=== PATIENT | male | born 2000 | race Caucasian/White ===

== ENCOUNTER 2022-10-01 10:41 | Inpatient (IN) | payer OTHER ==
[~2022-10-01] VITALS: Ht 193 cm; Wt 121.6 kg
[2022-10-01 15:33] VITALS: BP 138/71; PULSE 98; RESP 18; TEMP 98.2; O2SAT 98
[2022-10-01 16:00] VITALS: O2SAT 98
[2022-10-01] MEDS ORDERED: BISACODYL 10 MG RECTAL RECTAL SUPPOSITORY PR PRN (16:00)
[2022-10-01] MEDS ORDERED: IBUPROFEN 600 MG TABLET PO SCH (16:00)
[2022-10-01] MEDS ORDERED: ACETAMINOPHEN 500 MG TABLET PO SCH (16:00)
[2022-10-01] MEDS ORDERED: LACTULOSE 20 GM/30 ML SOLUTION UDCUP PO PRN (16:00)
[2022-10-01] MEDS: GABAPENTIN 300 MG CAPSULE PO SCH ×2 (17:42→22:17)
[2022-10-01] MEDS: METHOCARBAMOL 500 MG TABLET PO SCH ×2 (17:43→21:36)
[2022-10-01] MEDS: HEPARIN SODIUM,PORCINE 5,000 UNITS/ML VIAL SQ SCH (17:44)
[2022-10-01 21:34] VITALS: BP 129/63; PULSE 83; RESP 16; TEMP 98.3; O2SAT 100
[2022-10-01] MEDS: OxyCODONE HCL 10 MG IR TABLET PO PRN (21:34)
[2022-10-01] MEDS: ETHYL ALCOHOL 62% ANTISEPTIC NASAL SANITIZER 0.6 ML AMPUL NASAL SCH (21:35)
[2022-10-01] MEDS: MELATONIN 5 MG TABLET PO SCH (21:35)
[2022-10-01] MEDS: SENNOSIDES 8.6 MG TABLET PO SCH (21:35)
[2022-10-01] MEDS: DOCUSATE SODIUM 100 MG CAPSULE PO SCH (21:35)
[2022-10-01 23:42] VITALS: O2SAT 100
[2022-10-02] MEDS: ACETAMINOPHEN 500 MG TABLET PO SCH ×4 (00:26→18:13)
[2022-10-02] MEDS: HEPARIN SODIUM,PORCINE 5,000 UNITS/ML VIAL SQ SCH ×3 (00:26→16:35)
[2022-10-02] MEDS: IBUPROFEN 600 MG TABLET PO SCH ×4 (00:27→18:14)
[2022-10-02 08:05] VITALS: BP 127/66; PULSE 94; RESP 20; TEMP 98; O2SAT 98
[2022-10-02 08:17] LABS: EOSINOPHILS % (AUTO) 1.2 % (1.0-6.0); HEMOGLOBIN 11.3 g/dL (13.5-17.5); LYMPHOCYTES % (AUTO) 19.1 % (22.0-44.0); MEAN CORPUSCULAR HEMOGLOBIN 30.3 pg (26.0-34.0); MEAN CORPUSCULAR HGB CONC 33.2 G/dL (31.0-37.0); MEAN CORPUSCULAR VOLUME 91 fL (80-100); MONOCYTES % (AUTO) 12.8 % (2.0-9.0); NEUTROPHILS % (AUTO) 65.9 % (40.0-70.0); PLATELET COUNT (AUTO) 326 K/uL (150-450); RED BLOOD CELL COUNT(AUTO) 3.72 MIL/uL (4.50-5.90); RED CELL DISTRIBUTION WIDTH 15.9 % (11.5-14.5)
[2022-10-02] MEDS: DOCUSATE SODIUM 100 MG CAPSULE PO SCH ×2 (08:26→21:57)
[2022-10-02] MEDS: MAGNESIUM HYDROXIDE SUSPENSION 30 ML UDCUP PO SCH (08:26)
[2022-10-02] MEDS: METHOCARBAMOL 500 MG TABLET PO SCH ×4 (08:30→21:50)
[2022-10-02 08:38] LABS: ALANINE AMINOTRANSFERASE 34 U/L (12-78); ALKALINE PHOSPHATASE 135 U/L (46-116); ANION GAP 10 mmol/L (8-16); ASPARTATE AMINOTRANSFERASE 28 U/L (15-37); BILIRUBIN,TOTAL 0.8 mg/dL (0.1-1.0); CALCIUM, TOTAL 9.4 mg/dL (8.8-10.5); CARBON DIOXIDE 27 mmol/L (22-29); CHLORIDE 102 mmol/L (98-107); CREATININE 0.63 mg/dL (0.60-1.30); GLOMERULAR FILTR. RATE CALC > 60 mL/min (>60); GLUCOSE,RANDOM 102 mg/dL (70-110); POTASSIUM 4.3 mmol/L (3.5-5.1); SODIUM SERUM 139 mmol/L (136-145); TOTAL PROTEIN, SERUM 6.9 g/dL (6.4-8.2)
[2022-10-02] MEDS: ETHYL ALCOHOL 62% ANTISEPTIC NASAL SANITIZER 0.6 ML AMPUL NASAL SCH ×2 (08:50→21:48)
[2022-10-02] MEDS: GABAPENTIN 300 MG CAPSULE PO SCH ×3 (09:11→21:56)
[2022-10-02 09:14] LABS: LYMPHOCYTES # (AUTO) 1.6 K/uL (1.0-4.8); NEUTROPHILS # (AUTO) 5.4 K/uL (1.8-7.7)
[2022-10-02 10:04] VITALS: BP 124/70; PULSE 85; RESP 18; TEMP 98.2; O2SAT 98
[2022-10-02 12:31] VITALS: O2SAT 98
[2022-10-02 19:49] VITALS: BP 149/70; PULSE 108; RESP 16; TEMP 98; O2SAT 99
[2022-10-02 20:17] VITALS: O2SAT 99
[2022-10-02] MEDS: SENNOSIDES 8.6 MG TABLET PO SCH (21:49)
[2022-10-02] MEDS: OxyCODONE HCL 10 MG IR TABLET PO PRN (21:56)
[2022-10-02] MEDS: MELATONIN 5 MG TABLET PO SCH (21:57)
[2022-10-03] MEDS: ACETAMINOPHEN 500 MG TABLET PO SCH ×4 (00:45→18:08)
[2022-10-03] MEDS: IBUPROFEN 600 MG TABLET PO SCH ×4 (00:45→18:08)
[2022-10-03] MEDS: HEPARIN SODIUM,PORCINE 5,000 UNITS/ML VIAL SQ SCH ×3 (00:45→16:36)
[2022-10-03] MEDS: MAGNESIUM HYDROXIDE SUSPENSION 30 ML UDCUP PO SCH (09:00)
[2022-10-03] MEDS: ETHYL ALCOHOL 62% ANTISEPTIC NASAL SANITIZER 0.6 ML AMPUL NASAL SCH ×2 (09:11→21:10)
[2022-10-03] MEDS: DOCUSATE SODIUM 100 MG CAPSULE PO SCH ×2 (09:11→21:10)
[2022-10-03] MEDS: GABAPENTIN 300 MG CAPSULE PO SCH ×3 (09:12→21:10)
[2022-10-03] MEDS: METHOCARBAMOL 500 MG TABLET PO SCH ×4 (09:12→21:10)
[2022-10-03 11:12] VITALS: BP 131/90; PULSE 91; RESP 16; TEMP 98.2; O2SAT 99
[2022-10-03] MEDS: OxyCODONE HCL 5 MG IR TABLET PO PRN (14:25)
[2022-10-03] MEDS ORDERED: HYDROGEN PEROXIDE 473 ML SOLUTION TP PRN (15:30)
[2022-10-03 15:41] LABS: BASOPHILS % (AUTO) 0.6 % (0.0-2.0); EOSINOPHILS % (AUTO) 1.2 % (1.0-6.0); HEMATOCRIT 32.6 % (41-53); HEMOGLOBIN 10.8 g/dL (13.5-17.5); LYMPHOCYTES # (AUTO) 1.3 K/uL (1.0-4.8); LYMPHOCYTES % (AUTO) 18.8 % (22.0-44.0); MEAN CORPUSCULAR HGB CONC 33.1 G/dL (31.0-37.0); MEAN CORPUSCULAR VOLUME 91 fL (80-100); MONOCYTES # (AUTO) 0.7 K/uL (0.1-1.0); MONOCYTES % (AUTO) 9.6 % (2.0-9.0); NEUTROPHILS # (AUTO) 4.7 K/uL (1.8-7.7); NEUTROPHILS % (AUTO) 69.8 % (40.0-70.0); PLATELET COUNT (AUTO) 371 K/uL (150-450); RED CELL DISTRIBUTION WIDTH 15.9 % (11.5-14.5)
[2022-10-03 15:52] LABS: INR 1.1 (0.9-1.1); PROTHROMBIN TIME 11.7 SEC (9.4-11.6)
[2022-10-03 16:50] LABS: ERYTHROCYTE SEDIMENTATION RATE 40 MM/HR (0-15)
[2022-10-03 21:10] VITALS: BP 134/61; PULSE 112; RESP 16; TEMP 98; O2SAT 98
[2022-10-03] MEDS: OxyCODONE HCL 10 MG IR TABLET PO PRN (21:10)
[2022-10-03] MEDS: MELATONIN 5 MG TABLET PO SCH (21:10)
[2022-10-03] MEDS: SENNOSIDES 8.6 MG TABLET PO SCH (21:10)
[2022-10-03 22:29] VITALS: O2SAT 98
[2022-10-04] MEDS: ACETAMINOPHEN 500 MG TABLET PO SCH ×4 (00:14→19:33)
[2022-10-04] MEDS: IBUPROFEN 600 MG TABLET PO SCH ×4 (00:15→18:00)
[2022-10-04] MEDS: HEPARIN SODIUM,PORCINE 5,000 UNITS/ML VIAL SQ SCH ×4 (00:15→23:41)
[2022-10-04 08:30] VITALS: BP 138/68; PULSE 97; RESP 16; TEMP 99.2; O2SAT 99
[2022-10-04] MEDS: MAGNESIUM HYDROXIDE SUSPENSION 30 ML UDCUP PO SCH (09:00)
[2022-10-04] MEDS: METHOCARBAMOL 500 MG TABLET PO SCH ×4 (09:17→21:25)
[2022-10-04] MEDS: GABAPENTIN 300 MG CAPSULE PO SCH ×3 (09:17→21:25)
[2022-10-04] MEDS: DOCUSATE SODIUM 100 MG CAPSULE PO SCH ×2 (09:17→21:24)
[2022-10-04] MEDS: ETHYL ALCOHOL 62% ANTISEPTIC NASAL SANITIZER 0.6 ML AMPUL NASAL SCH ×2 (09:18→21:23)
[2022-10-04] MEDS: OxyCODONE HCL 10 MG IR TABLET PO PRN ×2 (17:12→21:36)
[2022-10-04 21:00] VITALS: BP 133/77; PULSE 100; RESP 20; TEMP 97.9; O2SAT 98
[2022-10-04] MEDS: SENNOSIDES 8.6 MG TABLET PO SCH (21:26)
[2022-10-04] MEDS: MELATONIN 5 MG TABLET PO SCH (22:49)
[2022-10-05] MEDS: IBUPROFEN 600 MG TABLET PO SCH ×5 (06:00→23:05)
[2022-10-05] MEDS: ACETAMINOPHEN 500 MG TABLET PO SCH ×5 (06:00→23:05)
[2022-10-05 08:20] VITALS: BP 136/65; PULSE 105; RESP 20; TEMP 98.5; O2SAT 98
[2022-10-05] MEDS: HEPARIN SODIUM,PORCINE 5,000 UNITS/ML VIAL SQ SCH ×3 (08:23→23:05)
[2022-10-05] MEDS: ETHYL ALCOHOL 62% ANTISEPTIC NASAL SANITIZER 0.6 ML AMPUL NASAL SCH ×2 (08:23→21:23)
[2022-10-05] MEDS: MAGNESIUM HYDROXIDE SUSPENSION 30 ML UDCUP PO SCH (08:24)
[2022-10-05] MEDS: DOCUSATE SODIUM 100 MG CAPSULE PO SCH ×2 (08:24→21:22)
[2022-10-05] MEDS: METHOCARBAMOL 500 MG TABLET PO SCH ×4 (08:24→21:22)
[2022-10-05] MEDS: GABAPENTIN 300 MG CAPSULE PO SCH ×3 (08:24→21:23)
[2022-10-05 09:28] VITALS: O2SAT 98
[2022-10-05] MEDS: MELATONIN 5 MG TABLET PO SCH (21:22)
[2022-10-05] MEDS: SENNOSIDES 8.6 MG TABLET PO SCH (21:22)
[2022-10-05 21:23] VITALS: BP 127/66; PULSE 91; RESP 18; TEMP 98.3; O2SAT 98
[2022-10-05] MEDS: OxyCODONE HCL 10 MG IR TABLET PO PRN (23:04)
[2022-10-06] MEDS: IBUPROFEN 600 MG TABLET PO SCH ×3 (06:00→18:00)
[2022-10-06] MEDS: ACETAMINOPHEN 500 MG TABLET PO SCH ×3 (06:00→18:00)
[2022-10-06 08:15] VITALS: BP 130/62; PULSE 101; RESP 20; TEMP 98.4; O2SAT 98
[2022-10-06] MEDS: MAGNESIUM HYDROXIDE SUSPENSION 30 ML UDCUP PO SCH ×2 (08:24→08:25)
[2022-10-06] MEDS: METHOCARBAMOL 500 MG TABLET PO SCH ×4 (08:24→21:36)
[2022-10-06] MEDS: DOCUSATE SODIUM 100 MG CAPSULE PO SCH ×2 (08:24→21:35)
[2022-10-06] MEDS: ETHYL ALCOHOL 62% ANTISEPTIC NASAL SANITIZER 0.6 ML AMPUL NASAL SCH ×2 (08:24→21:35)
[2022-10-06] MEDS: GABAPENTIN 300 MG CAPSULE PO SCH ×3 (08:24→21:36)
[2022-10-06] MEDS: HEPARIN SODIUM,PORCINE 5,000 UNITS/ML VIAL SQ SCH ×2 (08:24→17:16)
[2022-10-06] MEDS: OxyCODONE HCL 10 MG IR TABLET PO PRN ×2 (18:19→22:20)
[2022-10-06 21:00] VITALS: BP 137/77; PULSE 105; RESP 20; TEMP 97.3; O2SAT 98
[2022-10-06] MEDS: MELATONIN 5 MG TABLET PO SCH (21:00)
[2022-10-06] MEDS: SENNOSIDES 8.6 MG TABLET PO SCH (21:36)
[2022-10-07] MEDS: IBUPROFEN 600 MG TABLET PO SCH ×4 (00:34→18:00)
[2022-10-07] MEDS: HEPARIN SODIUM,PORCINE 5,000 UNITS/ML VIAL SQ SCH ×3 (00:35→16:07)
[2022-10-07] MEDS: ACETAMINOPHEN 500 MG TABLET PO SCH ×4 (00:35→18:00)
[2022-10-07 07:55] VITALS: BP 146/79; PULSE 89; RESP 18; TEMP 98.2; O2SAT 98
[2022-10-07] MEDS: MAGNESIUM HYDROXIDE SUSPENSION 30 ML UDCUP PO SCH (09:00)
[2022-10-07] MEDS: ETHYL ALCOHOL 62% ANTISEPTIC NASAL SANITIZER 0.6 ML AMPUL NASAL SCH ×2 (09:03→21:38)
[2022-10-07] MEDS: DOCUSATE SODIUM 100 MG CAPSULE PO SCH ×2 (09:03→21:38)
[2022-10-07] MEDS: METHOCARBAMOL 500 MG TABLET PO SCH ×4 (09:04→21:39)
[2022-10-07] MEDS: GABAPENTIN 300 MG CAPSULE PO SCH ×3 (09:04→21:39)
[2022-10-07] MEDS ORDERED: MAGNESIUM HYDROXIDE SUSPENSION 30 ML UDCUP PO PRN (09:30)
[2022-10-07] MEDS: SENNOSIDES 8.6 MG TABLET PO SCH (21:39)
[2022-10-07] MEDS: OxyCODONE HCL 10 MG IR TABLET PO PRN (21:43)
[2022-10-08] MEDS: HEPARIN SODIUM,PORCINE 5,000 UNITS/ML VIAL SQ SCH ×3 (00:12→16:20)
[2022-10-08] MEDS: MELATONIN 5 MG TABLET PO SCH ×2 (00:12→22:01)
[2022-10-08] MEDS: IBUPROFEN 600 MG TABLET PO SCH ×4 (00:12→19:11)
[2022-10-08 00:52] VITALS: O2SAT 99
[2022-10-08] MEDS: ACETAMINOPHEN 500 MG TABLET PO SCH ×4 (05:45→19:11)
[2022-10-08 08:05] VITALS: BP 155/85; PULSE 89; RESP 20; TEMP 98.2; O2SAT 98
[2022-10-08] MEDS: ETHYL ALCOHOL 62% ANTISEPTIC NASAL SANITIZER 0.6 ML AMPUL NASAL SCH ×2 (08:19→22:02)
[2022-10-08] MEDS: DOCUSATE SODIUM 250 MG CAPSULE PO SCH ×2 (08:20→22:02)
[2022-10-08] MEDS: METHOCARBAMOL 500 MG TABLET PO SCH ×4 (08:21→22:01)
[2022-10-08] MEDS: GABAPENTIN 300 MG CAPSULE PO SCH ×3 (08:21→22:02)
[2022-10-08 11:15] VITALS: O2SAT 98
[2022-10-08 20:15] VITALS: BP 103/66; PULSE 69; RESP 16; TEMP 98.1; O2SAT 98
[2022-10-08 20:16] VITALS: O2SAT 99
[2022-10-08] MEDS: OxyCODONE HCL 10 MG IR TABLET PO PRN (22:02)
[2022-10-08] MEDS: SENNOSIDES 8.6 MG TABLET PO SCH (22:02)
[2022-10-09] MEDS: IBUPROFEN 600 MG TABLET PO SCH ×5 (00:07→17:42)
[2022-10-09] MEDS: HEPARIN SODIUM,PORCINE 5,000 UNITS/ML VIAL SQ SCH ×3 (00:07→16:35)
[2022-10-09] MEDS: ACETAMINOPHEN 500 MG TABLET PO SCH ×5 (00:07→17:43)
[2022-10-09] MEDS ORDERED: OXYC10TA92 PO (03:43)
[2022-10-09] MEDS ORDERED: OXYC5 PO (03:43)
[2022-10-09] MEDS ORDERED: GABA-1181 PO (03:43)
[2022-10-09] MEDS ORDERED: MELA5TAB40 PO (03:43)
[2022-10-09] MEDS ORDERED: IBUP-1492 PO (03:43)
[2022-10-09] MEDS ORDERED: ACET-3385 PO (03:43)
[2022-10-09] MEDS ORDERED: SENN-376 PO (03:43)
[2022-10-09] MEDS ORDERED: DOCU-352 PO (03:43)
[2022-10-09] MEDS ORDERED: METH-659 PO (03:43)
[2022-10-09] MEDS: ETHYL ALCOHOL 62% ANTISEPTIC NASAL SANITIZER 0.6 ML AMPUL NASAL SCH ×2 (07:43→21:39)
[2022-10-09] MEDS: GABAPENTIN 300 MG CAPSULE PO SCH ×3 (07:43→21:38)
[2022-10-09] MEDS: DOCUSATE SODIUM 250 MG CAPSULE PO SCH ×2 (07:43→21:38)
[2022-10-09] MEDS: METHOCARBAMOL 500 MG TABLET PO SCH ×4 (07:43→21:37)
[2022-10-09 08:01] VITALS: BP 152/83; PULSE 97; RESP 19; TEMP 98.1; O2SAT 99
[2022-10-09 10:58] VITALS: O2SAT 98
[2022-10-09] MEDS: SENNOSIDES 8.6 MG TABLET PO SCH (21:38)
[2022-10-09] MEDS: OxyCODONE HCL 10 MG IR TABLET PO PRN (21:38)
[2022-10-09] MEDS: MELATONIN 5 MG TABLET PO SCH (21:38)
[2022-10-10] MEDS: ACETAMINOPHEN 500 MG TABLET PO SCH ×5 (00:32→23:37)
[2022-10-10] MEDS: HEPARIN SODIUM,PORCINE 5,000 UNITS/ML VIAL SQ SCH ×2 (00:32→09:31)
[2022-10-10] MEDS: IBUPROFEN 600 MG TABLET PO SCH ×2 (00:32→05:48)
[2022-10-10 00:44] VITALS: BP 136/60; PULSE 99; RESP 16; TEMP 97.6; O2SAT 99
[2022-10-10 01:16] VITALS: O2SAT 99
[2022-10-10 09:31] VITALS: BP 145/85; PULSE 98; RESP 19; TEMP 98.6; O2SAT 98
[2022-10-10] MEDS: DOCUSATE SODIUM 250 MG CAPSULE PO SCH ×2 (09:31→21:49)
[2022-10-10] MEDS: GABAPENTIN 300 MG CAPSULE PO SCH ×3 (09:31→21:49)
[2022-10-10] MEDS: ETHYL ALCOHOL 62% ANTISEPTIC NASAL SANITIZER 0.6 ML AMPUL NASAL SCH ×2 (09:31→21:49)
[2022-10-10] MEDS: METHOCARBAMOL 500 MG TABLET PO SCH (09:32)
[2022-10-10] MEDS ORDERED: IBUPROFEN 600 MG TABLET PO PRN (10:30)
[2022-10-10] MEDS ORDERED: METHOCARBAMOL 500 MG TABLET PO PRN (10:30)
[2022-10-10 20:51] VITALS: BP 146/79; PULSE 96; RESP 20; TEMP 98.9; O2SAT 97
[2022-10-10] MEDS: SENNOSIDES 8.6 MG TABLET PO SCH (21:49)
[2022-10-10] MEDS: MELATONIN 5 MG TABLET PO SCH (21:49)
[2022-10-10] MEDS: APIXABAN 5 MG TABLET PO SCH (21:49)
[2022-10-10] MEDS: OxyCODONE HCL 5 MG IR TABLET PO PRN (21:52)
[2022-10-10 22:41] VITALS: O2SAT 97
[2022-10-11] MEDS: ACETAMINOPHEN 500 MG TABLET PO SCH ×4 (06:00→23:43)
[2022-10-11 07:54] LABS: BASOPHILS % (AUTO) 0.6 % (0.0-2.0); EOSINOPHILS % (AUTO) 2.1 % (1.0-6.0); HEMATOCRIT 38.1 % (41-53); HEMOGLOBIN 12.7 g/dL (13.5-17.5); LYMPHOCYTES # (AUTO) 1.1 K/uL (1.0-4.8); LYMPHOCYTES % (AUTO) 27.6 % (22.0-44.0); MEAN CORPUSCULAR HEMOGLOBIN 30.3 pg (26.0-34.0); MEAN CORPUSCULAR HGB CONC 33.4 G/dL (31.0-37.0); MEAN CORPUSCULAR VOLUME 91 fL (80-100); MONOCYTES # (AUTO) 0.6 K/uL (0.1-1.0); MONOCYTES % (AUTO) 13.3 % (2.0-9.0); NEUTROPHILS # (AUTO) 2.3 K/uL (1.8-7.7); NEUTROPHILS % (AUTO) 56.4 % (40.0-70.0); PLATELET COUNT (AUTO) 265 K/uL (150-450); RED CELL DISTRIBUTION WIDTH 14.9 % (11.5-14.5)
[2022-10-11 08:18] LABS: ALANINE AMINOTRANSFERASE 44 U/L (12-78); ALBUMIN 3.4 g/dL (3.4-5.0); ALKALINE PHOSPHATASE 110 U/L (46-116); ANION GAP 12 mmol/L (8-16); ASPARTATE AMINOTRANSFERASE 20 U/L (15-37); BILIRUBIN,TOTAL 0.6 mg/dL (0.1-1.0); CALCIUM, TOTAL 9.5 mg/dL (8.8-10.5); CARBON DIOXIDE 27 mmol/L (22-29); CHLORIDE 101 mmol/L (98-107); CREATININE 0.68 mg/dL (0.60-1.30); GLOMERULAR FILTR. RATE CALC > 60 mL/min (>60); GLUCOSE,RANDOM 105 mg/dL (70-110); SODIUM SERUM 140 mmol/L (136-145); TOTAL PROTEIN, SERUM 7.1 g/dL (6.4-8.2)
[2022-10-11 09:08] VITALS: BP 124/65; PULSE 101; RESP 19; TEMP 98.8; O2SAT 99
[2022-10-11] MEDS: DOCUSATE SODIUM 250 MG CAPSULE PO SCH ×2 (09:08→21:45)
[2022-10-11] MEDS: APIXABAN 5 MG TABLET PO SCH ×2 (09:08→21:45)
[2022-10-11] MEDS: ETHYL ALCOHOL 62% ANTISEPTIC NASAL SANITIZER 0.6 ML AMPUL NASAL SCH ×2 (09:08→21:45)
[2022-10-11] MEDS: GABAPENTIN 300 MG CAPSULE PO SCH ×3 (09:08→21:45)
[2022-10-11 20:00] VITALS: BP 145/70; PULSE 105; RESP 16; TEMP 98.5; O2SAT 99
[2022-10-11] MEDS: SENNOSIDES 8.6 MG TABLET PO SCH (21:45)
[2022-10-11] MEDS: MELATONIN 5 MG TABLET PO SCH (21:45)
[2022-10-12 04:36] VITALS: O2SAT 99
[2022-10-12] MEDS: ACETAMINOPHEN 500 MG TABLET PO SCH ×4 (06:00→17:54)
[2022-10-12 08:00] VITALS: BP 148/90; PULSE 84; RESP 19; TEMP 98.1; O2SAT 99
[2022-10-12] MEDS: DOCUSATE SODIUM 250 MG CAPSULE PO SCH ×2 (08:45→21:42)
[2022-10-12] MEDS: GABAPENTIN 300 MG CAPSULE PO SCH ×3 (08:45→21:42)
[2022-10-12] MEDS: ETHYL ALCOHOL 62% ANTISEPTIC NASAL SANITIZER 0.6 ML AMPUL NASAL SCH ×2 (08:45→21:42)
[2022-10-12] MEDS: APIXABAN 5 MG TABLET PO SCH ×2 (08:45→21:42)
[2022-10-12 20:20] VITALS: BP 147/85; PULSE 99; RESP 19; TEMP 98.4; O2SAT 100
[2022-10-12] MEDS: SENNOSIDES 8.6 MG TABLET PO SCH (21:42)
[2022-10-12] MEDS: OxyCODONE HCL 10 MG IR TABLET PO PRN (21:42)
[2022-10-12] MEDS: MELATONIN 5 MG TABLET PO SCH (21:46)
[2022-10-13] MEDS: ACETAMINOPHEN 500 MG TABLET PO SCH ×5 (00:25→23:07)
[2022-10-13] MEDS: GABAPENTIN 300 MG CAPSULE PO SCH ×3 (08:26→21:53)
[2022-10-13] MEDS: DOCUSATE SODIUM 250 MG CAPSULE PO SCH ×2 (08:26→21:53)
[2022-10-13] MEDS: ETHYL ALCOHOL 62% ANTISEPTIC NASAL SANITIZER 0.6 ML AMPUL NASAL SCH ×2 (08:26→21:53)
[2022-10-13] MEDS: APIXABAN 5 MG TABLET PO SCH ×2 (08:26→21:53)
[2022-10-13 09:40] VITALS: BP 162/81; PULSE 90; RESP 20; TEMP 98; O2SAT 96
[2022-10-13 11:21] VITALS: O2SAT 98
[2022-10-13 20:33] VITALS: BP 138/77; PULSE 90; RESP 19; TEMP 98.1; O2SAT 99
[2022-10-13] MEDS: SENNOSIDES 8.6 MG TABLET PO SCH (21:53)
[2022-10-13] MEDS: MELATONIN 5 MG TABLET PO SCH (21:55)
[2022-10-13] MEDS: OxyCODONE HCL 5 MG IR TABLET PO PRN (22:41)
[2022-10-14] MEDS: ACETAMINOPHEN 500 MG TABLET PO SCH ×2 (06:00→12:42)
[2022-10-14 08:00] VITALS: BP 141/73; PULSE 92; RESP 20; TEMP 98; O2SAT 98
[2022-10-14] MEDS: DOCUSATE SODIUM 250 MG CAPSULE PO SCH (08:24)
[2022-10-14] MEDS: ETHYL ALCOHOL 62% ANTISEPTIC NASAL SANITIZER 0.6 ML AMPUL NASAL SCH (08:24)
[2022-10-14] MEDS: GABAPENTIN 300 MG CAPSULE PO SCH ×2 (08:24→15:55)
[2022-10-14] MEDS: APIXABAN 5 MG TABLET PO SCH (08:24)
[2022-10-14] MEDS ORDERED: SENN-277 PO (11:09)
[2022-10-14] MEDS ORDERED: APIX5TAB PO (11:09)
[2022-10-14] MEDS ORDERED: ACET-3385 PO (11:09)
[2022-10-14] MEDS ORDERED: OXYC5 PO (11:09)
[2022-10-14] MEDS ORDERED: GABA-1181 PO (11:09)
[2022-10-14] MEDS ORDERED: DOCU-352 PO (11:09)
== END 2022-10-14 16:55 | disposition home health service (06) | DRG 964 ==
LOC: UNDOADMIN 15:33 → 4E 15:33 → 2WR 10-02 18:37
PROVIDERS: ADMIT Physical Medicine & Rehabilitation; ATTEND Physical Medicine & Rehabilitation
DX: S06.9XAA Unspecified intracranial injury with loss of consciousness status unknown, initial encounter (principal); S32.9XXA Fracture of unspecified parts of lumbosacral spine and pelvis, initial encounter for closed fracture; E46 Unspecified protein-calorie malnutrition; S82.252A Displaced comminuted fracture of shaft of left tibia, initial encounter for closed fracture; S37.29XA Other injury of bladder, initial encounter; S53.105A Unspecified dislocation of left ulnohumeral joint, initial encounter; R40.2410 Glasgow coma scale score 13-15, unspecified time; S33.4XXA Traumatic rupture of symphysis pubis, initial encounter; S43.005A Unspecified dislocation of left shoulder joint, initial encounter; D64.9 Anemia, unspecified; N32.89 Other specified disorders of bladder; N43.3 Hydrocele, unspecified; S82.409A Unspecified fracture of shaft of unspecified fibula, initial encounter for closed fracture; R26.9 Unspecified abnormalities of gait and mobility; Z79.899 Other long term (current) drug therapy; Z68.32 Body mass index [BMI] 32.0-32.9, adult; V89.2XXA Person injured in unspecified motor-vehicle accident, traffic, initial encounter; Y93.I9 Activity, other involving external motion; Y92.488 Other paved roadways as the place of occurrence of the external cause; Y99.8 Other external cause status
CPT/HCPCS: 76870; 80053; 85025; 85610; 85651; 86140; 87070; 87081; 87205; 92523; 93970; 97110; 97140; 97163; 97167; 97530; 97535; 99366; J1644; Q9967